=== PATIENT | female | born 1955 | race Caucasian/White ===

== ENCOUNTER → 2016-10-23 | Day surgery (SDC) | payer BC ==
[2016-10-09 07:36] VITALS: Ht 160 cm; Wt 77.3 kg
[~2016-10-23] VITALS: Ht 160 cm; Wt 77.3 kg
[~2016-10-23] MED LIST: ACET-1256 PO; ACET-749 PO; ASCA500 PO; ASCO500C4 PO; ASPI81TA28 PO; B-COTAB53 PO; CHOL20009 PO; CYAN250T PO; CYM/30 PO; DOXY50TA2 PO; FLUC150T PO; HYDR12.55 PO; IBUP-103 PO; IOPAMIDOL INJ 61% 15 ML VIAL ONE; LIDOCAINE HCL 1% MPF 5 ML VIAL ONE; METH-446 PO; MULT-506 PO; OXYC1TAB3 PO; SODIUM CHLORIDE 0.9% INJ 10 ML VIAL ONE; TRAM-10 PO
--- NOTE | 2016-10-23 13:24 | History & Physical Bridge - [place] ---
H&P Re-Evaluation Bridge Note: I have examined the patient, reviewed the History & Physical and in the interval since the performance of the History & Physical I have noted the following changes of clinical significance: No changes noted
[2016-10-23 13:58] VITALS: TEMP 36.5
--- NOTE | 2016-10-23 13:59 | Discharge Instructions ---
Discharge Instructions Date of Service Oct 23, 2016. Visit Reason for Visit: Lumbar Radiculopathy Discharge Discharge Diagnosis / Problem: low back pain with leg pain Discharge Goals Goal(s): Decrease discomfort, Improve function Medications Stopped Medications Name(s): Asa 81 mg daily, last dose 10/17/16, advil last dose 10/19/16 Activity Recommendations Activity Limitations: resume your previous activity Anesthesia . Post Anesthesia Instructions: If you have had General Anesthesia or IV Sedation: * Do not drive today. * Resume driving when surgeon permits. * Do not make important decisions or sign legal documents today. * Call surgeon for: 1. Temperature elevations greater than 101 degrees F. 2. Uncontrollable pain. 3. Excessive bleeding. 4. Persistent nausea and vomiting. 5. Medication intolerance (nausea, vomiting or rash). * For nausea and vomiting use only clear liquids such as: tea, soda, bouillon until nausea subsides, then gradually increase diet as tolerated. * If you have any concerns or questions, call your surgeon's office. If physician is unavailable and it is an emergency, call 911 or go to the nearest emergency room. . Diet Recommendations Recommended Home Diet: resume previous diet Procedures Procedures Performed: Lumbar Epidural Steroid Injection Pending Studies Studies pending at discharge: no Medical Emergencies . Who to Call and When: Medical Emergencies: If at any time you feel your situation is an emergency, please call 911 immediately. . Non-Emergent Contact Non-Emergency issues call your: Specialist . . "Provider Documentation" section prepared by Tio Costa.
[2016-10-23 14:05] VITALS: BP 140/87; PULSE 71; O2SAT 97
--- NOTE | 2016-10-23 14:14 | OPERATIVE REPORT ---
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 POSTOPERATIVE DIAGNOSES: Same. PROCEDURE: Left paramedian L5-S1 intralaminar epidural steroid injection under fluoroscopic guidance. INDICATIONS: The patient is a 61-year-old white female, who has responded favorably to epidural injections, last one done more around almost 4 months ago. The pain has returned and is functionally limiting to her. She reports that she now gets intermittent radicular pain on the left side and the right side and most recently, the left side has been problematic. PHYSICAL EXAMINATION: Pleasant female seated comfortably, difficulty with the sit to stand transfer. No focal weakness. Negative seated straight leg raise. CONSENT: Verbal and written consent was obtained from the patient. Risks and benefits were reviewed. Risks include, but are not limited to epidural abscess, epidural hematoma, allergic reaction, and dural puncture. The patient wishes to proceed. DESCRIPTION OF PROCEDURE: The patient was taken back to the special procedures room of the [facility], where she was maintained in a prone position. Backside was cleansed with Betadine x3 and a dry sterile dressing was applied. Fluoroscope was used to identify the L5-S1 intralaminar space. Overlying skin on the left side was anesthetized with 4 mL of lidocaine 1% with a 25-gauge 1.5-inch needle. A 22-gauge 3.5-inch Tuohy needle was then directed down towards the intralaminar space. It was advanced under lateral fluoroscopic guidance and loss of resistance was noted at a depth of 6 cm. Isovue-300 contrast 1 mL was injected, which demonstrated epidural uptake pattern with good outline of the S1 nerve root. She then underwent injection after negative aspiration of 40 mg of Depo-Medrol and 4 mL of preservative free sodium chloride. Injection was well tolerated. DISPOSITION: 1. The patient is taken out into the discharge recovery area, where she will be discharged home once discharge criteria have been met. 2. Follow up in the [facility] office in 2-4 weeks. I attest to the content of the Intraoperative Record and any orders documented therein. Any exceptio ns are noted below.
== END | disposition home or self-care (01) ==
LOC: X.SURG 12:30
PROVIDERS: ATTEND Physical Medicine & Rehabilitation
DX: M54.16 Radiculopathy, lumbar region (principal)

== ENCOUNTER 2016-12-07 11:03 | Emergency (ER) | payer BC ==
[~2016-12-07] VITALS: Ht 160 cm; Wt 78.0 kg
[~2016-12-07 11:03] MED LIST changes: -ACET-749 PO; -ASCO500C4 PO; -CYAN250T PO; -CYM/30 PO; -IOPAMIDOL INJ 61% 15 ML VIAL ONE; -LIDOCAINE HCL 1% MPF 5 ML VIAL ONE; -METH-446 PO; -OXYC1TAB3 PO; -SODIUM CHLORIDE 0.9% INJ 10 ML VIAL ONE; -TRAM-10 PO
[2016-12-07 11:05] VITALS: TEMP 37; Ht 160 cm; Wt 78.0 kg
[2016-12-07] MEDS ORDERED: ACET-749 PO (11:27)
[2016-12-07] MEDS ORDERED: METH-446 PO (11:27)
[2016-12-07] MEDS ORDERED: CYM/30 PO (11:27)
[2016-12-07] MEDS ORDERED: ASCO500C4 PO (11:27)
[2016-12-07] MEDS ORDERED: CYAN250T PO (11:27)
[2016-12-07] MEDS ORDERED: KETOROLAC TROMETHAMINE 60 MG/2 ML VIAL IM STA (12:33)
--- NOTE | 2016-12-07 12:34 | DIAGNOSTIC IMAGING REPORT ---
L-SPINE MIN 4 VIEWS ROUTINE CLINICAL HISTORY: Worsening back pain COMPARISON STUDY: 10/23/2015 FINDINGS: There are surgical clips within the right upper quadrant. There is thoracolumbar dextroscoliosis. There are no acute fractures. There is minimal retrolisthesis of L2 on L3. There are degenerative changes most pronounced at the L1-2 and L2-3 levels.. IMPRESSION: No significant change from the preceding study. No acute fractures. Degenerative changes most pronounced at the L1-2 and L2-3 levels. Electronically signed by: Moshe Gresham M.D. 12/07/2016 12:33 PM Dictated Date/Time: 12/07/2016 12:31 PM
--- NOTE | 2016-12-07 12:35 | DIAGNOSTIC IMAGING REPORT ---
C-SPINE ROUTINE 4 OR 5 VIEWS CLINICAL HISTORY: Neck pain COMPARISON STUDY: No previous studies for comparison. FINDINGS: There is slight straightening of normal cervical lordosis. No fractures or traumatic subluxations are visualized. There is no evidence of bony foraminal stenosis. IMPRESSION: Minor degenerative change. Slight straightening of the normal cervical lordosis. No fractures or traumatic subluxations identified. Electronically signed by: Moshe Gresham M.D. 12/07/2016 12:34 PM Dictated Date/Time: 12/07/2016 12:33 PM
[2016-12-07 12:45] VITALS: BP 137/98; PULSE 76; O2SAT 97
[2016-12-07] MEDS ORDERED: OXYC1TAB3 PO (13:00)
--- NOTE | 2016-12-07 17:56 | EMERGENCY ROOM VISIT NOTE ---
History Report prepared by Thiago: Rahul Stone Under the Supervision of: Dr. Bay [place] M.D. First contact with patient: 11:31 Chief Complaint: BACK PAIN Stated Complaint: LOWER BACK AND LEG PAIN History of Present Illness The patient is a 61 year old female who presents to the Emergency Room with complaints of constant lower back pain worsening this morning. She states that her pain radiates down her legs, and is worse in the right leg. She also has been experiencing tingling in her feet which began about a week ago. She describes the pain in her legs as "burning'. The patient has been having problems with back pain for about a year and a half. She has been seen by orthopedics, neurology, neurosurgery, chiropractics, and has received PT for her pain. She is now followed by pain management. The patient had an MRI last year that revealed several lumbar bulging discs. Per daughter, the patient woke up this morning and had significant difficulty walking due to her pain. The patient believes that PT may be making her pain worse. She denies any loss of continence, urinary symptoms, or abdominal pain. She notes that her legs sometimes shake when she comes down the steps, but she does not feel that her legs are weak. She states that she has had no saddle anesthesia. The patient denies any recent falls or trauma. She denies any recent unintended weight loss. She notes that she normally walks four miles per day, but has not been doing this recently and may have gained weight. The patient's daughter notes that the patient has received many different treatments, but has not received improvement from most of them. Source of History: patient, family (daughter) Onset: this morning Position: back (lower) Symptom Intensity: severe Quality: burning Timing: constant Modifying Factors (Worsening): movement Associated Symptoms: No abdominal pain, No urinary symptoms, No weakness Note: The patient denies any loss of continence. She also complains of "burning" pain radiating down her legs, bilateral foot tingling beginning about a week ago, and "heaviness" in the vaginal area. Review of Systems See HPI for pertinent positives & negatives. A total of 10 systems reviewed and were otherwise negative. Past Medical & Surgical Medical Problems: (1) Back pain (2) High blood pressure (3) Sleep apnea Surgical Problems: (1) H/O wisdom tooth extraction (2) History of cholecystectomy Family History No pertinent family history stated. Social History Smoking Status: Never Smoker Housing Status: lives alone Occupation Status: employed Current/Historical Medications Scheduled Ascorbic Acid (Vitamin C Cr), 1 TAB PO DAILY Aspirin (Aspirin Ec), 81 MG PO QAM Cholecalciferol (Vitamin D), 1 TAB PO QAM Cyanocobalamin (Vitamin B-12 250 Mcg), 250 MCG PO DAILY Duloxetine HCl (Cymbalta), 1 CAP PO DAILY Hydrochlorothiazide (Hydrochlorothiazide), 1 TAB PO QAM Methocarbamol (Robaxin), 750 MG PO HS Multivitamin (Multivitamin), 1 TAB PO QAM Scheduled PRN Acetaminophen (Tylenol), 500 TAB PO TID PRN for Pain Acetaminophen/Codeine (Tylenol W/Codeine #3), 1 TAB PO TID PRN for Pain Ibuprofen Tab (Advil), 600 MG PO TID PRN for Pain Oxycodone Ir (Roxicodone Ir), 5 MG PO Q4H PRN for Pain Allergies Coded Allergies: No Known Allergies (Unverified , 10/23/16) Physical Exam Vital Signs Date Time Temp Pulse Resp B/P Pulse Ox O2 Delivery O2 Flow Rate FiO2 12/07/16 12:45 76 16 137/98 97 Room Air 12/07/16 11:05 37.0 88 18 170/112 99 Room Air Physical Exam Constitutional: Vital signs reviewed. Eyes: Pupils are equal round reactive to light. Conjunctiva are noninjected. ENT: Pharynx is clear without erythema or exudate. Mucous membranes are moist. Neck supple without meningeal signs. Respiratory: Clear to auscultation bilaterally. Breath sounds are equal bilaterally. Cardiovascular: Regular rate and rhythm. No rubs or gallops. GI: Soft, nondistended and nontender. Bowel sounds are present. Musculoskeletal: No peripheral edema. No lower extremity tenderness. No midline tenderness to the thoracic or lumbosacral spine. Integumentary: No cyanosis. Neurological: The patient is awake and alert. Motor and sensation intact throughout the lower extremities. Positive straight leg raise on the left side at 30 degrees. Negative straight leg raise on the right. Psychiatric: Normal affect. Medical Decision & Procedures ER Provider Diagnostic Interpretation: X-ray results as stated below per interpretation by me and the radiologist: L-SPINE MIN 4 VIEWS ROUTINE FINDINGS: There are surgical clips within the right upper quadrant. There is thoracolumbar dextroscoliosis. There are no acute fractures. There is minimal retrolisthesis of L2 on L3. There are degenerative changes most pronounced at the L1-2 and L2-3 levels.. IMPRESSION: No significant change from the preceding study. No acute fractures. Degenerative changes most pronounced at the L1-2 and L2-3 levels. Electronically signed by: Moshe Gresham M.D. C-SPINE ROUTINE 4 OR 5 VIEWS FINDINGS: There is slight straightening of normal cervical lordosis. No fractures or traumatic subluxations are visualized. There is no evidence of bony foraminal stenosis. IMPRESSION: Minor degenerative change. Slight straightening of the normal cervical lordosis. No fractures or traumatic subluxations identified. Electronically signed by: Moshe Gresham M.D. Medications Administered Medications (Trade) Dose Ordered Sig/Lynn Route Start Time Stop Time Status Last Admin Dose Admin Ketorolac Tromethamine (Toradol Inj) 30 mg NOW STAT IM 12/07/16 12:33 12/07/16 12:35 DC 12/07/16 12:44 30 MG ED Course 1134: The patient was evaluated in room C4. A complete history and physical exam was performed. 1233: Ordered Toradol Inj 30 mg IM. 1255: I talked with the patient about her test results. I attempted to call Dr. Cannon, but I couldn't reach him. I gave the patient advice on Oxycodone use. The patient verbalized agreement and understanding of the treatment plan. The patient was discharged home. Medical Decision This is a 61-year-old female presents with worsening back pain. Differential diagnosis includes lumbar disc disease, compression fracture, pathologic fracture, strain, cauda equina syndrome. I did perform a limited focused review of portions of the patient's old chart on the electronic medical record. The patient had an epidural steroid injection in October of the lumbar spine. I did evaluate the patient as noted above. The patient is presenting with worsening back pain. She has a history of back problems with disc protrusion. She is followed by a neurosurgeon as well as pain management. She does not have any signs of cauda equina syndrome. I did treat the patient with Toradol IM. I did order an x-ray of the lumbar spine. I also x-rayed her cervical spine per her daughter's request who is a PA. I did review the images myself as well as the radiology report as described above. She does have degenerative changes but no acute fractures. I did discuss the test results with the patient and her daughter. At this time there was no acute indication for an emergent MRI. I did recommend follow up with her doctor for further evaluation. I did try to call her doctor but he was unavailable. She was given a short prescription for oxycodone and given precautions regarding this medication. She was discharged in good condition and given return instructions as outlined below. [place] Drug Monitoring Program Search Results: patient reviewed within database, no issues identified Impression Primary Impression: Acute exacerbation of chronic low back pain Scribe Attestation The scribe's documentation has been prepared under my direct and personally reviewed by me in its entirety. I confirm that the note above accurately reflects all work, treatment, procedures, and medical decision making performed by me. Departure Information Dispostion Home / Self-Care Prescriptions Oxycodone Ir (Roxicodone Ir) 5 Mg Tab 5 MG PO Q4H Y for Pain, #20 TAB Prov: Bay [place] M.D. 12/07/16 Referrals Fer Cannon M.D. (PCP) Forms HOME CARE DOCUMENTATION FORM, IMPORTANT VISIT INFORMATION Patient Instructions ED Back Pain Acute Chronic, My [facility] Additional Instructions You have been examined and treated today on an emergency basis only. This is not a substitute for, or an effort to provide, complete comprehensive medical care. It is impossible to recognize and treat all injuries or illnesses in a single emergency department visit. It is therefore important that you follow up closely with your physician. Call as soon as possible for an appointment. Return for worsening symptoms or if you develop fever, vomiting, abdominal pain , loss of control of your bowel or bladder, numbness or weakness to your legs, numbness to your private area, difficulty urinating, or any other concerning symptoms.
== END 2016-12-07 13:15 | disposition home or self-care (01) ==
LOC: C.EDB 11:04 → C.EDC 13:15
DX: M54.5 Low back pain (principal); G89.29 Other chronic pain; I10 Essential (primary) hypertension; G47.30 Sleep apnea, unspecified; Z90.49 Acquired absence of other specified parts of digestive tract; Z79.82 Long term (current) use of aspirin; Z79.899 Other long term (current) drug therapy

== ENCOUNTER → 2016-12-16 | Outpatient (CLI) | payer BC ==
[~2016-12-16] MED LIST changes: +ACET-749 PO; -ASCA500 PO; +ASCO500C4 PO; -B-COTAB53 PO; +CYAN250T PO; +CYM/30 PO; -DOXY50TA2 PO; -FLUC150T PO; +METH-446 PO; +OXYC1TAB3 PO
--- NOTE | 2016-12-16 14:18 | DIAGNOSTIC IMAGING REPORT ---
LUMBAR SPINE MRI HISTORY: Low back pain. LUMBAR RADICULOPATHY TECHNIQUE: Multiplanar multisequence MRI of the lumbar spine was performed without the use of contrast. COMPARISON: Lumbar spine MRI 12/14/2015. FINDINGS: For the purpose of the report the L5-S1 disc space will be located on axial image 27 of 30. No fractures or subluxation. Mild degenerative changes at L2-L3. There is mild disc space narrowing at T12-L1 and L1-L2. There is moderate to severe disc space narrowing at L2-L3. This has progressed. The conus terminates at the L1 level. The visualized retroperitoneal soft tissues are unremarkable. Small focal central disc protrusions at T11-T12 and T12-L1, unchanged. These result in mild central canal narrowing. L1-L2: No change in the broad-based posterior disc bulge with small left paracentral focal disc protrusion. This results in mild central canal and mild bilateral neural foraminal narrowing. L2-L3: There is a large central/left paracentral disc extrusion which is increased in size. This measures 16 x 14 x 8 mm. This results in moderate to severe left-sided central canal narrowing. This compresses the transiting left sided nerve roots within the central canal at this level. This also partially compresses the right-sided nerve roots. There is also a broad-based posterior disc bulge resulting in moderate left and mild right neural foraminal narrowing. L3-L4: Small broad-based posterior disc bulge without significant central canal or neural foraminal narrowing. L4-L5: Small broad-based posterior disc bulge with a tiny focal central disc protrusion. No significant central canal or neural foraminal narrowing. This remains unchanged L5-S1: Small broad-based posterior disc bulge with a focal central annular tear. No synovial central canal or neural foraminal narrowing. This remains unchanged. IMPRESSION: 1. Interval increase in size in the large central/left paracentral disc extrusion at L2-L3. This results in moderate to severe central canal narrowing, left greater than right. This also results in compression of the transiting nerve roots at this level, left greater than right. . 2. Additional multilevel degenerative changes as described above are not significantly changed. Electronically signed by: Mohan Arrieat M.D. 12/16/2016 2:16 PM Dictated Date/Time: 12/16/2016 2:05 PM
== END | disposition home or self-care (01) ==
LOC: C.MRIBC 12:36
PROVIDERS: ATTEND Physical Medicine & Rehabilitation
DX: M54.16 Radiculopathy, lumbar region (principal); M51.26 Other intervertebral disc displacement, lumbar region; M51.37 Other intervertebral disc degeneration, lumbosacral region

== ENCOUNTER → 2017-01-01 | Outpatient (CLI) | payer BC ==
--- NOTE | 2017-01-01 08:23 | DIAGNOSTIC IMAGING REPORT ---
MRI OF THE CERVICAL SPINE WITHOUT CONTRAST CLINICAL HISTORY: Gait disturbance. Hyperreflexia. COMPARISON: Cervical spine radiograph December 07, 2016. TECHNIQUE: Utilizing a 1.5 Meli magnet and dedicated coil, multiplanar, multiecho imaging of the cervical spine was performed without IV contrast. FINDINGS: Alignment of the cervical spine is anatomic. Vertebral body heights are maintained. There is no intracanalicular mass or fluid collection. Cervical cord signal and caliber are normal. Visualized portions of the posterior fossa are unremarkable. Paravertebral soft tissues are unremarkable. C2-C3: The central canal and neural foramen are patent. C3-C4: The central canal and right neural foramen are patent. The left neural foramen is also patent. C4-C5: The central canal and neural foramen are patent. C5-C6: There is a tiny central disc protrusion. There is no significant central canal stenosis. The neural foramen are patent. C6-C7: There is a tiny left paracentral disc protrusion. Central canal and neural foramen are patent. C7-T1: The central canal and neural foramen are patent. IMPRESSION: 1. Minimal degenerative disc disease with tiny disc protrusions at C5-C6 and C6-C7 without significant central canal or neural foraminal stenosis. 2. Normal cervical cord signal and caliber. 3. No intracanalicular mass or fluid collection. Electronically signed by: Brian Hannon M.D. 01/01/2017 8:22 AM Dictated Date/Time: 01/01/2017 8:16 AM
--- NOTE | 2017-01-01 10:44 | DIAGNOSTIC IMAGING REPORT ---
MRI OF THE THORACIC SPINE WITHOUT IV CONTRAST CLINICAL HISTORY: Gait disturbance. COMPARISON STUDY: Chest CT dated 03/01/2008. TECHNIQUE: MRI of the thoracic spine is performed utilizing various T1 and T2-weighted sequences in the axial and sagittal planes. IV contrast was not administered for this examination. FINDINGS: Vertebral body height and alignment are maintained throughout the thoracic spine. Normal marrow signal intensity is preserved throughout the visualized bony structures. No destructive osseous lesion is seen. The transverse and spinous processes are intact as visualized. Mild degenerative disc desiccation is seen throughout the thoracic spine. There is mild loss of height seen from T11-T12 through L1-L2. No large disc herniation is identified. Posterior disc bulges are seen at T9-T10, T11-T12, T12-L1, and L1-L2. The T11-T12 disc bulge is eccentric to the right and abuts the ventral cord. There is mild central canal stenosis at T11-T12 with a minimum AP diameter of 8 mm. There is also likely mild central canal narrowing at L1-L2 with a minimum AP diameter of 8.5 mm. This was better assessed on the 12/16/2016 MRI of the lumbar spine. The thoracic spinal cord is normal in morphology and signal intensity. The conus medullaris terminates at the T12-L1 interspace. No significant neural foraminal stenosis is seen throughout the thoracic spine. The paraspinous soft tissues are within normal limits. The lung parenchyma is grossly normal but not well evaluated by MRI. IMPRESSION: 1. The thoracic spinal cord is normal in morphology and signal intensity. 2. No destructive bony process is seen throughout the thoracic spine. 3. No large disc herniation is seen. 4. A disc bulge eccentric to the right at T11-T12 abuts the ventral cord and causes mild central canal stenosis. 5. Mild degenerative disc disease at additional levels as detailed above. Dictated: 01/01/2017 8:17 AM Transcribed: 01/01/2017 10:44 AM [facility] Electronically signed by: Jonathan Rausch M.D. 01/01/2017 10:52 AM Dictated Date/Time: 01/01/2017 8:17 AM
== END | disposition home or self-care (01) ==
LOC: C.MRI 06:10
PROVIDERS: ATTEND Neurological Surgery
DX: R29.2 Abnormal reflex (principal); R26.9 Unspecified abnormalities of gait and mobility; M51.24 Other intervertebral disc displacement, thoracic region

== ENCOUNTER → 2017-01-26 | Outpatient (CLI) | payer BC ==
--- NOTE | 2017-01-26 10:11 | DIAGNOSTIC IMAGING REPORT ---
TWO VIEW CHEST CLINICAL HISTORY: Preoperative examination. FINDINGS: PA and lateral chest radiographs are compared to study dated 05/19/2011 and correlation is made with chest CT dated 03/01/2008. The cardiomediastinal silhouette is unremarkable. Aneurysmal dilatation of the ascending thoracic aorta is suspected. The lungs and pleural spaces are clear. There is no pneumothorax. The skeletal structures are osteopenic. The bony thorax appears intact. Surgical clips are seen in the upper abdomen. IMPRESSION: 1. No acute cardiopulmonary abnormality. 2. Suspect aneurysmal dilatation of the ascending thoracic aorta. Consider CT angiogram of the chest for further assessment. Electronically signed by: Jonathan Rausch M.D. 01/26/2017 10:10 AM Dictated Date/Time: 01/26/2017 10:07 AM
[2017-01-26 12:16] LABS: COMPLETE YES; HEMATOCRIT 40.5 % (37-47); IG% 0.2 %; LYMPH ABS # 1.21 K/uL (1.2-3.4); MEAN CELL VOLUME 87.5 fL (80-100); MEAN CORPUSCULAR HEMOGLOBIN 28.3 pg (25-34); MEAN CORPUSCULAR HGB CONC 32.3 g/dl (32-36); MEAN PLATELET VOLUME 11.5 fL (7.4-10.4); MONO % 6.7 %; NEUT % 70.1 %; PLATELET COUNT 223 K/uL (130-400); RED BLOOD COUNT 4.63 M/uL (4.2-5.4); WHITE BLOOD COUNT 5.25 K/uL (4.8-10.8)
[2017-01-26 12:24] LABS: URINE APPEARANCE CLEAR (CLEAR); URINE BILIRUBIN NEG (NEG); URINE COLOR YELLOW; URINE EPITHELIAL CELL AUTO 0-5 /lpf (0-5); URINE NITRITE NEG (NEG); URINE SPECIFIC GRAVITY 1.012 (1.000-1.030); UROBILINOGEN NEG (NEG); ZZUR CULT IF INDIC CLEAN CATCH NO
[2017-01-26 12:29] LABS: INR 0.9 (0.9-1.1); PROTHROMBIN TIME (PATIENT) 10.1 SECONDS (9.0-12.0)
[2017-01-26 12:31] LABS: MANUAL MICROSCOPIC REQUIRED? NO; REVIEW REQ? NO
[2017-01-26 13:16] LABS: ALT/SGPT 32 U/L (12-78); BLOOD UREA NITROGEN 14 mg/dl (7-18); BUN/CREATININE RATIO 21.8 (10-20); CALCIUM 9.2 mg/dl (8.5-10.1); CARBON DIOXIDE 30 mmol/L (21-32); CHLORIDE 102 mmol/L (98-107); CREATININE 0.65 mg/dl (0.60-1.20); GLUCOSE 91 mg/dl (70-99); POTASSIUM 3.7 mmol/L (3.5-5.1); SODIUM 140 mmol/L (136-145)
[2017-01-26 13:18] LABS: ALB/GLOB RATIO 1.1 (0.9-2); ALKALINE PHOSPHATASE 88 U/L (45-117); AST/SGOT 28 U/L (15-37)
== END | disposition home or self-care (01) ==
LOC: C.LAB1850 09:00
PROVIDERS: ATTEND Physician Assistant
DX: M51.26 Other intervertebral disc displacement, lumbar region (principal); M43.16 Spondylolisthesis, lumbar region

== ENCOUNTER → 2017-02-04 | Outpatient (CLI) | payer BC ==
[~2017-02-04] MED LIST changes: +OPTIRAY 320 IV PRN
--- NOTE | 2017-02-04 23:20 | DIAGNOSTIC IMAGING REPORT ---
CHEST ANGIO WITH CONTRAST CLINICAL HISTORY: Abnormal chest radiograph. COMPARISON STUDY: Chest radiograph January 26, 2017. TECHNIQUE: Helical axial images of the chest were obtained during arterial phase following intravenous injection of 117 cc Optiray 320 IV. Sagittal and coronal reconstructions were viewed as well as maximal intensity projections on an independent 3-D workstation. FINDINGS: The size of the heart is normal. There is dilatation of the ascending aorta which measures 4.4 cm in caliber at the level the main pulmonary artery. There is no dissection. There has been mild increase in dilatation of the ascending aorta since chest CT of March 01, 2008 when the ascending aorta measured 4.2 cm. Central airways are patent. There is no consolidation to suggest pneumonia. Scattered subpleural opacities reflect atelectasis. There is no pneumothorax or pleural effusion. Bony thorax and upper abdomen are unremarkable. There are no enlarged axillary, mediastinal or hilar lymph nodes. The caliber of the descending thoracic aorta and the proximal abdominal aorta is normal. There are multiple small thyroid nodules. IMPRESSION: 1. Mild dilatation of the ascending aorta, measuring 4.4 cm. Mild increase in caliber since CT of March 01, 2008. No dissection. 2. No acute intrathoracic findings. 3. Mild coronary artery calcification. Electronically signed by: Brian Hannon M.D. 02/04/2017 11:19 PM Dictated Date/Time: 02/04/2017 4:07 PM
== END | disposition home or self-care (01) ==
LOC: C.CTS 15:18
PROVIDERS: ATTEND Internal Medicine
DX: R93.8 Abnormal findings on diagnostic imaging of other specified body structures (principal)

== ENCOUNTER → 2017-03-03 | Outpatient (CLI) | payer BC ==
[~2017-03-03] MED LIST changes: -OPTIRAY 320 IV PRN
--- NOTE | 2017-03-03 15:29 | DIAGNOSTIC IMAGING REPORT ---
LUMBAR SPINE 2 VIEWS HISTORY: SPONDYLOLISTHESIS,LUMBAR REGION COMPARISON: Lumbar spine 12/07/2016. FINDINGS: Interval posterior decompression fusion at L1-L3 with pedicle screws and rods. The hardware appears intact. No significant periprosthetic lucency. Vertebral body heights are maintained. No fractures identified. There is a disc spacer at L2-L3. There is 3 mm of retrolisthesis of L1 on L2. IMPRESSION: Interval posterior decompression and fusion at L1-L3 with pedicle screws and rods. The hardware appears intact. There is suggestion of grade I retrolisthesis of L1 on L2. Electronically signed by: Mohan Arrieta M.D. 03/03/2017 3:28 PM Dictated Date/Time: 03/03/2017 3:25 PM
== END | disposition home or self-care (01) ==
LOC: C.RAD1850 14:57
PROVIDERS: ATTEND Physician Assistant
DX: M43.16 Spondylolisthesis, lumbar region (principal); Z98.1 Arthrodesis status

== ENCOUNTER → 2017-03-14 | Outpatient (CLI) | payer BC ==
[2017-03-14 13:23] LABS: URINE APPEARANCE CLEAR (CLEAR); URINE BILIRUBIN NEG (NEG); URINE COLOR DK YELLOW; URINE EPITHELIAL CELL AUTO 20-30 /lpf (0-5); URINE NITRITE NEG (NEG); URINE SPECIFIC GRAVITY 1.016 (1.000-1.030); UROBILINOGEN NEG (NEG)
[2017-03-14 13:24] LABS: MANUAL MICROSCOPIC REQUIRED? NO; REVIEW REQ? NO
== END | disposition home or self-care (01) ==
LOC: C.LABBC 10:55
PROVIDERS: ATTEND Internal Medicine
DX: R39.9 Unspecified symptoms and signs involving the genitourinary system (principal)

== ENCOUNTER → 2017-04-22 | Outpatient (CLI) | payer BC ==
--- NOTE | 2017-04-22 12:58 | DIAGNOSTIC IMAGING REPORT ---
LUMBAR SPINE 3 VIEWS CLINICAL HISTORY: Status post spinal fusion. FINDINGS: AP, lateral, and coned-down views of the lumbar spine are obtained in the standing position. Comparison is made to study dated 03/03/2017. The skeletal structures are osteopenic. There is no radiographic evidence of fracture or malalignment. Mild hyperlordosis is observed. There are postoperative changes from laminectomy and posterior fusion from L1 to L3. Interpedicular screws are present at all levels. The orthopedic hardware appears intact. Vertebral body height is maintained throughout the lumbar spine. Minimal retrolisthesis is seen at L1-L2 and L3-L4. Tiny anterior osteophytes are seen throughout. The transverse processes are intact as imaged. There is evidence of discectomy at L2-L3. Moderate disc space narrowing is seen at T12-L1 and L1-L2. Mild disc space narrowing seen at L3-L4. Facet arthropathy is noted in the lower lumbar spine. The visualized bony pelvis appears intact. Surgical clips are noted in the right upper quadrant. There is a nonobstructed abdominal bowel gas pattern. IMPRESSION: 1. No acute bony abnormality is seen involving the lumbar spine. 2. Osteopenia with postoperative and degenerative change as above. Dictated: 04/22/2017 12:43 PM Transcribed: 04/22/2017 12:58 PM [facility] Electronically signed by: Jonathan Rausch M.D. 04/22/2017 1:11 PM Dictated Date/Time: 04/22/2017 12:43 PM
== END | disposition home or self-care (01) ==
LOC: C.RAD 12:15
PROVIDERS: ATTEND Physician Assistant
DX: Z98.1 Arthrodesis status (principal); M85.88 Other specified disorders of bone density and structure, other site

== ENCOUNTER → 2017-07-30 | Outpatient (CLI) | payer BC ==
[~2017-07-30] MED LIST changes: -OXYC1TAB3 PO
--- NOTE | 2017-07-30 14:15 | DIAGNOSTIC IMAGING REPORT ---
LUMBAR SPINE 2 OR 3 VIEWS CLINICAL HISTORY: LUMBAR FUSION postoperative evaluation COMPARISON STUDY: 04/30/2017 FINDINGS: Operative changes consistent with posterior laminectomy and fusion of L1-L3. Alignment is anatomic and unchanged in the prior exam. A disc spacers present at the L2-L3 level. L4 and L5 vertebral bodies are unremarkable in stature. There is been no change compared to the prior study. IMPRESSION: Anatomic alignment status post laminectomy and fusion L1-L3. No change from the prior exam. The above report was generated using voice recognition software. It may contain grammatical, syntax or spelling errors. Electronically signed by: Tom Thompson M.D. 07/30/2017 2:14 PM Dictated Date/Time: 07/30/2017 2:13 PM
== END | disposition home or self-care (01) ==
LOC: C.RAD1850 13:40
PROVIDERS: ATTEND Neurological Surgery
DX: Z98.1 Arthrodesis status (principal)

== ENCOUNTER → 2017-07-31 | Outpatient (CLI) | payer BC ==
[~2017-07-31] MED LIST changes: -ACET-749 PO; +ACET300T3 PO
--- NOTE | 2017-08-04 13:37 | MAMMOGRAPHY REPORT ---
BILATERAL DIGITAL SCREENING MAMMOGRAM TOMOSYNTHESIS WITH CAD: 07/31/2017 CLINICAL HISTORY: Routine screening. Patient has no complaints. TECHNIQUE: Breast tomosynthesis in addition to standard 2D mammography was performed. Current study was also evaluated with a Computer Aided Detection (CAD) system. COMPARISON: Comparison is made to exams dated: 07/23/2016 mammogram, 07/20/2015 mammogram, 4 mammogram, 04/15/2013 mammogram, 04/14/2012 mammogram, and 04/14/2011 mammogram - [facility]. BREAST COMPOSITION: There are scattered areas of fibroglandular density in both breasts. FINDINGS: No suspicious masses, calcifications, or areas of architectural distortion are noted in ei ther breast. There has been no significant interval change compared to prior exams. Scattered bilater al benign-appearing calcifications are not significantly changed. IMPRESSION: ACR BI-RADS CATEGORY 2: BENIGN There is no mammographic evidence of malignancy. A 1 year screening mammogram is recommended. The pa tient will receive written notification of the results. Approximately 10% of breast cancers are not detected with mammography. A negative mammographic report should not delay biopsy if a clinically suggestive mass is present. Enedina Post M.D. /:07/31/2017 15:24:19 Associate Program Manager: Glenda Parekh, [facility] letter sent: Normal 1/2 BI-RADS Code: ACR BI-RADS Category 2: Benign
== END | disposition home or self-care (01) ==
LOC: C.MAMM 09:34
PROVIDERS: ATTEND Internal Medicine
DX: Z12.31 Encounter for screening mammogram for malignant neoplasm of breast (principal)